=== PATIENT | female | born 1960 | race Caucasian/White ===

== ENCOUNTER 2018-12-30 08:03 | Outpatient (CLI) | payer OTHER | END 2018-12-30 08:07 | disposition home or self-care (01) | LOC: SONOGRAMA 08:03 → MAMO-SONO 08:45 | DX: M76.62 Achilles tendinitis, left leg (principal); M77.32 Calcaneal spur, left foot ==

== ENCOUNTER 2025-08-10 06:00 | Day surgery (SDC) | payer OTHER ==
[2025-08-04 10:31] LABS: BASO % 0.3 % (0.1-1.2); EOS # 0.03 (0.04-0.54); EOS % 0.4 % (0.7-7.0); LYMPH # 3.30 (1.18-3.74); LYMPH % 48.5 % (19.3-53.1); MEAN PLATELET VOLUME 11.50 fl (9.4-12.4); MONO # 0.51 (0.24-0.82); MONO % 7.5 % (4.7-12.5); NEUT # 2.93 (1.56-6.13); NEUT % 43.2 % (34.0-71.1); RED CELL DISTRIBUTION WIDTH 13.1 % (11.6-14.4)
[2025-08-04 10:44] LABS: URINE APPEARANCE Clear; URINE BILIRRUBIN Negative (NEGATIVE); URINE BLOOD Negative; URINE COLOR Yellow; URINE GLUCOSE Negative (NEGATIVE); URINE KETONE Negative (NEGATIVE); URINE LEUKOCYTE Moderate; URINE NITRATE Negative; URINE PROTEIN Negative (NEGATIVE); URINE UROBILINOGEN 1.0 E.U./dl
[2025-08-04 10:49] LABS: URINE BACTERIA 3667.1 uL (0.0-1933); URINE EPITHELIAL CELLS 93.9 uL (0.0-38.8); URINE RBC 3.5 uL (0.0-20.8); URINE WBC 40.6 uL (0.0-23.2)
[2025-08-04 10:59] LABS: URINE CAST 0.00 uL (0.0-1.40)
[2025-08-04 11:10] LABS: INR 1.02
[2025-08-04 11:15] VITALS: BP 154/81
[2025-08-04 11:33] LABS: ALT/SGPT 23.0 U/L (12-78); AST/SGOT 12.0 U/L (15-37); BILIRUBIN TOTAL 0.99 mg/dL (0.3-1.2); BUN CREA RATIO 19.0 (7.0-25.0); CREATININE SERUM 0.62 mg/dL (0.55-1.02); GFR 97.22; GLOBULINA 3.5 G/DL (2.4-3.5); GLUCOSE FASTING 104.0 mg/dL (65-100); OSMOLALITY SERUM 285.0 MOSM/KG (275-295); TSH 1.21 uIU/mL (0.358-3.74)
[~2025-08-10] VITALS: Ht 160 cm; Wt 93.9 kg
[~2025-08-10 06:00] MED LIST: DIALYVITE 800-1 EACH PO; DICLOFENAC-MIS1 EAC1 PO; GLIPIZIDE XL2.5 MG; LANTUS SOL100 UNIT/1; LIPITOR20 MG; METFORMIN HCL500 M3; SYNTHROID88 MCG PO
[2025-08-10] MEDS ORDERED: CEFAZOLIN SODIUM 1,000 MG VIAL IV ONE (08:30)
[2025-08-10] MEDS ORDERED: SUGAMMADEX SODIUM 200 MG/2 ML VIAL IV ONE (09:15)
[2025-08-10] MEDS ORDERED: CEFAZOLIN SODIUM 1,000 MG VIAL IV SCH (10:15)
== END 2025-08-10 12:50 | disposition home or self-care (01) ==
LOC: CIR.AMB 06:00
PROVIDERS: ATTEND Specialist
DX: K80.10 Calculus of gallbladder with chronic cholecystitis without obstruction (principal)